=== PATIENT | female | born 1995 | race African-American/Black ===

== ENCOUNTER 2018-12-11 17:52 | Emergency (ER) | payer MEDICAID ==
[~2018-12-11] VITALS: Ht 149.9 cm; Wt 82.5 kg
[2018-12-11] MEDS ORDERED: OMEP20CA10 PO (18:34)
[2018-12-11] MEDS ORDERED: IBUPROFEN 600MG TABLET PO ONE (21:15)
[2018-12-11 22:03] VITALS: BP 114/60
== END 2018-12-11 22:05 | disposition home or self-care (01) ==
LOC: ER 17:52
DX: S06.0X9A Concussion with loss of consciousness of unspecified duration, initial encounter (principal); R51 Headache; X58.XXXA Exposure to other specified factors, initial encounter; Y93.9 Activity, unspecified; Y92.9 Unspecified place or not applicable; Z88.0 Allergy status to penicillin
CPT/HCPCS: 70450; 81025; 99284; Z7610